=== PATIENT | female | born 1950 | race American Indian/Alaskan Native ===

== ENCOUNTER 2018-04-21 16:45 | Emergency (ER) | payer SELFPAY ==
[2018-04-21 17:14] VITALS: BP 180/87
== END 2018-04-21 17:09 | disposition left against medical advice (07) ==
LOC: ED 16:45
DX: R73.9 Hyperglycemia, unspecified (principal); Z53.21 Procedure and treatment not carried out due to patient leaving prior to being seen by health care provider
CPT/HCPCS: 82962

== ENCOUNTER 2018-05-03 22:15 | Emergency (ER) | payer SELFPAY | END 2018-05-03 22:18 | disposition left against medical advice (07) | LOC: ED 22:15 | DX: R10.9 Unspecified abdominal pain (principal); Z53.21 Procedure and treatment not carried out due to patient leaving prior to being seen by health care provider ==

== ENCOUNTER 2018-05-04 14:20 | Emergency (ER) | payer OTHER, MEDICARE ==
--- NOTE | 2018-05-04 14:50 | Emergency Department Report ---
ED Abdominal Pain HPI - General Chief Complaint: Abdominal Pain Stated Complaint: ABD PAIN Time Seen by Provider: 05/04/18 14:44 Source: patient, family Mode of arrival: Ambulatory Limitations: No Limitations - History of Present Illness MD Complaint: abdominal pain -: Gradual, week(s) Location: diffuse Radiation: LUQ Severity: moderate Quality: cramping Consistency: constant Improves With: medication (PAIN MEDS; HERE SEVERAL TIMES THIS WEEK BUT LEFT. FAMILY STATES SHE WANTS PAIN MEDS. [place]. ) Worsens With: nothing Context: other (AC ABD PAIN) Associated Symptoms: denies: nausea, vomiting, diarrhea, fever, chills, constipation, dysuria, hematemesis, hematochezia, melena, hematuria, anorexia, syncope Treatments Prior to Arrival: prescription analgesics - Related Data LMP (females 10-50): other (MENOPAUSAL) Allergies Allergy/AdvReac Type Severity Reaction Status Date / Time Penicillins Allergy Hives Verified 04/21/18 17:14 ED Review of Systems ROS: Stated complaint: ABD PAIN Other details as noted in HPI Comment: All other systems reviewed and negative Constitutional: denies: chills, fever Eyes: denies: eye pain ENT: denies: ear pain, throat pain Respiratory: denies: cough, orthopnea Cardiovascular: denies: chest pain, palpitations Endocrine: denies: excessive sweating, flushing Gastrointestinal: abdominal pain, nausea. denies: vomiting, diarrhea, constipation, hematemesis, melena Genitourinary: denies: urgency, dysuria Musculoskeletal: denies: back pain Skin: denies: rash, lesions Neurological: denies: headache, weakness Psychiatric: denies: anxiety, depression Hematological/Lymphatic: denies: easy bleeding ED Past Medical Hx - Past Medical History Hx Hypertension: Yes Hx Diabetes: Yes Additional medical history: pancreatitis - Surgical History Hx Cholecystectomy: Yes Additional Surgical History: Hysterectomy - Family History Family history: no significant - Social History Smoking Status: Current Some Day Smoker Substance Use Type: None ED Physical Exam - General Limitations: No Limitations General appearance: alert - Head Head exam: Present: atraumatic - Eye Eye exam: Present: PERRL - ENT ENT exam: Present: mucous membranes moist - Neck Neck exam: Present: normal inspection. Absent: tenderness, meningismus - Respiratory Respiratory exam: Present: normal lung sounds bilaterally - Cardiovascular Cardiovascular Exam: Present: regular rate, tachycardia (100) - GI/Abdominal GI/Abdominal exam: Present: soft, tenderness, normal bowel sounds. Absent: distended, guarding, rebound, rigid, diminished bowel sounds, hyperactive bowel sounds, hypoactive bowel sounds, organomegaly, mass, bruit, pulsatile mass, hernia - Rectal Rectal exam: Present: deferred - Extremities Exam Extremities exam: Present: normal inspection, full ROM. Absent: tenderness - Back Exam Back exam: Present: normal inspection, full ROM. Absent: tenderness, CVA tenderness (R), CVA tenderness (L) - Neurological Exam Neurological exam: Present: alert, oriented X3, CN II-XII intact, normal gait - Psychiatric Psychiatric exam: Present: normal affect, normal mood - Skin Skin exam: Present: warm, dry, intact, normal color ED Course Vital Signs 05/04/18 05/04/18 14:23 19:00 Pulse Rate 100 H 72 Respiratory 16 16 Rate Blood Pressure 181/100 Blood Pressure 151/66 [Left] O2 Sat by Pulse 98 100 Oximetry - Reevaluation(s) Reevaluation #1: TEMP 98 ON ADMIT LABS NOTED CT NOTED MEDICATED X 1 W RELIEF TAKING PO AMBULATORY NONTOXIC AND NON ILL APPEARING DC HOME W FAMILY. ED Medical Decision Making - Lab Data Result diagrams: 05/04/18 14:57 05/04/18 14:57 - EKG Data -: EKG Interpreted by Me EKG shows normal: sinus rhythm Rate: tachycardia - EKG Data When compared to previous EKG there are: no significant change Interpretation: no acute changes - Radiology Data Radiology results: report reviewed, image reviewed - Medical Decision Making LABS STABLE CT STABLE LABS NOTED TAKING PO FAMILY STATES PT IS WANTING DRUGS SEE FREQ VISITS. NON ILL NON TOXIC AMBULATORY AND TAKING PO - Differential Diagnosis RO PANCREATITIS Critical care attestation.: If time is entered above; I have spent that time in minutes in the direct care of this critically ill patient, excluding procedure time. ED Disposition Clinical Impression: Hyperglycemia, IDDM (insulin dependent diabetes mellitus), Abdominal pain, Chronic pain, Hypertension Disposition: DC- TO HOME OR SELFCARE Is pt being admited?: No Does the pt Need Aspirin: No Condition: Stable Instructions: Diabetes Mellitus Type 2 in Adults (ED) Additional Instructions: DIABETIC DIET TOLERATED CONTINUE HOME MEDS ULTRAM STATIN [place] LYRICA LANTUS HUMALOG ACTIVITY TOLERATED FOLLOW AND TRACK YOUR BLOOD SUGARS HYDATE WELL WITH WATER FOLLOW UP WITH PCP FOR PAIN CONTROL REFERRAL GIVEN HERE FOR LOCAL MD ER WILL NOT RX [facility] PAIN MEDS Referrals: PRIMARY CARE, [Primary Care Provider] - 3-5 Days TAYLOR MOTT MD [Referring] - 3-5 Days Time of Disposition: 18:42
[2018-05-04 15:06] LABS: Basophils # (Auto) 0.1 K/mm3 (0.0-0.1); Basophils % (Auto) 1.2 % (0.0-1.8); Eosinophils % (Auto) 0.1 % (0.0-4.3); Hematocrit 42.1 % (30.3-42.9); Hemoglobin 13.9 gm/dl (10.1-14.3); Lymphocytes % (Auto) 17.8 % (13.4-35.0); Mean Corpuscular HGB Conc 33 % (30-34); Mean Corpuscular Hemoglobin 31 pg (28-32); Mean Corpuscular Volume 93 fl (79-97); Monocytes # (Auto) 0.3 K/mm3 (0.0-0.8); Monocytes % (Auto) 5.1 % (0.0-7.3); Platelet Count 134 K/mm3 (140-440); Red Blood Count 4.52 M/mm3 (3.65-5.03)
[2018-05-04 15:14] LABS: INR 1.02 (0.87-1.13)
[2018-05-04 15:20] LABS: Alanine Aminotransferase 30 units/L (7-56); Albumin 3.9 g/dL (3.9-5); BUN/Creatinine Ratio 11; Blood Urea Nitrogen 18 mg/dL (7-17); Calcium 9.1 mg/dL (8.4-10.2); Hemolysis Index 4; Lipase 11 units/L (13-60)
[2018-05-04] MEDS ORDERED: ZOFRAN IV ONE (15:20)
[2018-05-04] MEDS ORDERED: LACTATED RINGERS 1,000 ML IV ONE (15:20)
[2018-05-04 15:23] LABS: Bilirubin,Direct < 0.2 mg/dL (0-0.2)
[2018-05-04] MEDS ORDERED: HumuLIN R IV ONE ×2 (15:26→17:19)
[2018-05-04] MEDS ORDERED: DILAUDID IV ONE (17:07)
--- NOTE | 2018-05-04 17:08 | Cat Scan Report ---
FINAL REPORT PROCEDURE: CT ABDOMEN PELVIS WO CON TECHNIQUE: Computerized axial tomography of the abdomen was performed without intravenous contrast. This study is performed without intravascular contrast material and its sensitivity for abdominal and pelvic pathology, including neoplasms, inflammation, abscess, free fluid, thrombosis, arterial dissection and infarction, is reduced compared with a contrast enhanced study. HISTORY: ABD PAIN COMPARISON: No prior studies are available for comparison. FINDINGS: Visualized lower thorax: No significant abnormality. Liver: Diffuse low attenuation of the liver is compatible with fatty infiltration. Spleen: Normal size and attenuation. Gallbladder and biliary system: There has been cholecystectomy. Pancreas: No acute abnormality is seen. Adrenals: Normal. Kidneys: 2 millimeter nonobstructing calculus in the right kidney midpole. GI tract: Normal . Lymph nodes and mesentery: Normal. Vasculature: Normal. Peritoneum: No free fluid. Musculoskeletal structures: Degenerative disc and facet arthritic changes of the lumbar spine are noted. Other: None . IMPRESSION: 2 millimeter nonobstructing calculus in the right kidney midpole. Mild fatty infiltration of the liver
[2018-05-04] MEDS ORDERED: NACL 0.9% 1000 ML 1,000 ML IV ONE (17:18)
[2018-05-04 19:01] VITALS: BP 151/66
== END 2018-05-04 19:19 | disposition home or self-care (01) ==
LOC: ED 14:20
DX: R10.12 Left upper quadrant pain (principal); G89.29 Other chronic pain; E11.65 Type 2 diabetes mellitus with hyperglycemia; I10 Essential (primary) hypertension; F17.200 Nicotine dependence, unspecified, uncomplicated; Z90.710 Acquired absence of both cervix and uterus; Z88.0 Allergy status to penicillin
CPT/HCPCS: 36415; 74150; 80048; 80074; 82150; 82962; 83690; 85025; 85610; 96361; 96374; 96375; 96376; 99284; J1170; J2405; J7120; J1815

== ENCOUNTER 2018-05-14 10:48 | Outpatient (CLI) | payer MEDICARE, OTHER ==
--- NOTE | 2018-05-14 13:08 | Mammography Report ---
BILATERAL DIGITAL SCREENING MAMMOGRAM with CAD: 05/14/18 10:48:00 CLINICAL: Routine screening. COMPARISON:None. Her last mammogram was 30 years ago. FINDINGS: The breasts are heterogeneously dense, which may obscure small masses. Right retroareolar asymmetries require additional imaging.No architectural distortion or suspicious calcifications.The left breast is negative. IMPRESSION: Right asymmetries requiring further workup. BI-RADS CATEGORY: 0 -- Additional Imaging Evaluation Required RECOMMENDATION: Recall for right lateralmedial , spot magnification CC and MLO views and right breast ultrasound if needed. ACR BI-RADS MAMMOGRAPHIC CODES: 0 = Needs additional imaging evaluation; 1 = Negative; 2 = Benign; 3 = Probably benign; 4 = Suspicious; 5 = Malignant; 6 = Known biopsy-proven malignancy COMMENT: 1. Dense breast tissue, i.e., adenosis, fibrocystic changes, etc., may obscure an underlying neoplasm. 2. Approximately 10% of cancers are not detected with mammography. 3. A negative mammography report should not delay biopsy if a clinically suspicious mass is present. COMMENT: Patient follow-up letters are generated via our [facility] application.
== END 2018-05-14 10:49 | disposition home or self-care (01) ==
LOC: MAMMO 10:48
PROVIDERS: ATTEND Internal Medicine
DX: Z12.31 Encounter for screening mammogram for malignant neoplasm of breast (principal); I10 Essential (primary) hypertension; E11.9 Type 2 diabetes mellitus without complications; Z90.49 Acquired absence of other specified parts of digestive tract
CPT/HCPCS: 77067